=== PATIENT | male | born 1985 | race Two or more races ===

== ENCOUNTER 2018-08-22 14:49 | Emergency (ER) | payer SELFPAY ==
[~2018-08-22] VITALS: Ht 162.6 cm; Wt 60.8 kg
[2018-08-22 14:51] VITALS: BP 123/85
--- NOTE | 2018-08-22 15:30 | NUR ---
For discharge- After care instructions verbalized understanding Home ambulatory Stable
== END 2018-08-22 16:19 | disposition home or self-care (01) ==
LOC: ER 14:54
DX: H92.03 Otalgia, bilateral (principal)